=== PATIENT | female | born 1990 ===

== ENCOUNTER 2017-02-20 22:16 | Emergency (ER) | payer OTHER ==
[2017-02-21] MEDS ORDERED: KETOROLAC TROMETHAMINE 30 MG/ML 1 ML VIAL ONE (01:34)
[2017-02-21] MEDS ORDERED: ACETAMINOPHEN 500 MG TABLET ONE (01:34)
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
== END 2017-02-21 02:40 | disposition home or self-care (01) ==
LOC: ED 22:16
DX: M54.5 Low back pain (principal); M79.602 Pain in left arm; V43.52XA Car driver injured in collision with other type car in traffic accident, initial encounter; Y92.410 Unspecified street and highway as the place of occurrence of the external cause